=== PATIENT | male | born 1935 | race Caucasian/White ===

== ENCOUNTER 2023-06-15 09:11 | Emergency (ER) | payer MEDICARE, SELFPAY ==
[2023-06-15] VITALS (9 sets, daily range): BP systolic 70–112; BP diastolic 28–57; PULSE 95–112; RESP 18–36; TEMP 36.4–36.9; O2SAT 95–100; BMI 39.4
--- NOTE | ~2023-06-15 | XR_ITS ---
EXAMINATION: XR CHEST CLINICAL INFORMATION: Altered mental status, shortness of breath. COMPARISON: None available. TECHNIQUE: Frontal view of the chest was obtained. FINDINGS: Enlarged cardiomediastinal silhouette with midline sternotomy wires and multiple mediastinal surgical clips. Increased interstitial markings with more focal airspace densities in the left lower lobe. Small left pleural effusion. No pneumothorax. No acute osseous findings. XR/XR chest 1V IMPRESSION: 1. Increased interstitial markings with more focal airspace opacities in the left lower lobe and a small left pleural effusion. Findings are indeterminate and could be related with pulmonary edema and superimposed infectious/inflammatory process in the left lower lobe. 2. Enlarged cardiomediastinal silhouette.
--- NOTE | 2023-06-15 09:17 | ECG_ITS ---
Test Reason : WEAKNESS Blood Pressure : / mmHG Vent. Rate : 107 BPM Atrial Rate : 107 BPM P-R Int : 128 ms QRS Dur : 096 ms QT Int : 348 ms P-R-T Axes : 027 -22 097 degrees QTc Int : 464 ms Sinus tachycardia with Premature supraventricular complexes Possible Anterior infarct , age undetermined Abnormal ECG No previous ECGs available Referred By: Ezequiel Gary Electronically Signed By:EMELYN ARCHULETA
--- NOTE | 2023-06-15 10:09 | ED_ITS ---
HPI - General Adult General Chief complaint: Dyspnea Stated complaint: WEAKNESS SOB DIZZINESS Time Seen by Provider: 06/15/23 09:16 Source: patient and EMS Mode of arrival: EMS Limitations: no limitations History of Present Illness HPI narrative: This is an 88-year-old male history of CHF, obesity, history of CABG presenting to the emergency department via ambulance for shortness of breath and dizziness both of which started this morning. He reports this morning when he got out of bed he felt not only short of breath but he felt like he was going to pass out. He also reports that over the past few days he has been much more weak than usual. He denies associated chest pain. He states he only gets chest pain when he exerts himself and this is new however no chest pain at this time. Patient denies fevers, chills, nausea, vomiting, abdominal pain, headache, vision changes, difficulties with urination or bowel habits. NIHSS-0 Related Data Allergies Allergy/AdvReac Type Severity Reaction Status Date / Time No Known Allergies Allergy Verified 06/15/23 09:27 Review of Systems 2 Review of Systems: Yes all other systems are reviewed and are negative [facility] Past Medical History Attestation statement: The following information was validated with the patient. Source: old records reviewed and nursing notes reviewed Medical History (Updated 06/15/23 @ 13:00 by Rodríguez Fiore MD) CHF (congestive heart failure) Coronary artery disease Social History Social History Smoked in Last 30 Days: No Use of substances other than those prescribed or required for medical reasons: No Advance Directives: No Advance Directives Information Provided: Yes Do you have a plan to hurt others: No Plan Physical Exam ED Vital Signs: Vital Signs - 24 hr 06/15/23 09:16 06/15/23 10:12 06/15/23 11:39 Temperature 97.8 F 97.5 F Pulse Rate 102 H 96 108 H Respiratory Rate 24 H 35 H 18 Blood Pressure 95/57 L 93/45 L 106/38 L Pulse Oximetry 100 95 Oxygen Delivery Method Room Air Room Air Oxygen Flow Rate 06/15/23 11:43 06/15/23 11:58 06/15/23 11:59 Temperature 97.5 F 98.1 F 98.1 F Pulse Rate 110 H 112 H 109 H Respiratory Rate 28 H 36 H 29 H Blood Pressure 106/38 L 96/28 L 87/55 L Pulse Oximetry Oxygen Delivery Method Oxygen Flow Rate 06/15/23 12:44 06/15/23 13:46 Temperature 98.5 F Pulse Rate 95 Respiratory Rate 20 18 Blood Pressure 112/54 L Pulse Oximetry 100 Oxygen Delivery Method Oxymask Oxygen Flow Rate 5 BMI result Body Mass Index 39.4 Hypotension, tachypneic, and tachycardia. Appearance: Alert.? Oriented X3.? No acute distress.? Head: Normocephalic, atraumatic, no step-offs or deformities Eyes: Pupils equal, round and reactive to light.? Neck: Normal inspection.? Neck supple.? CVS: Rapid heart rate around 110 normal rhythm..? Pulses normal.? Respiratory: No respiratory distress.? Breath sounds diminished b/l.? Abdomen: Soft and nontender.? Skin: Skin warm and dry.? Pale skin throughout .? Normal skin turgor.? Extremities: 2+ non pitting edema from the knees down b/l.? No calf ttp. Global weakness Rectal: no noted bleeding on initial exam no hemorrhoids noted. Internal or external. Back: No midline tenderness, no C-spine tenderness, full range of motion, no CVA tenderness bilaterally Neuro: Oriented X 3.? No motor deficit.? No sensory deficit. CN 2-12 intact Course Reevaluation(s) Reevaluation #1: Patient is noted to have a low hemoglobin and hematocrit, normocytic anemia hemoglobin 7.8 hematocrit 24.7, RBCs 2.63, when I discuss these results with patient he said that a few days ago he had a black bowel movement and he has not sure if this could be blood. I did obtain a rectal exam, no damion blood noted on exam however OBS sent for microscopic blood. Chemistry with elevated lactic acid 3.3, due to circulatory shock/ hypovolemic shock, hypotension, tachycardia as welll as suspected acute lower GIB / anemia , unlikely from infection or sepsis. VBG with slightly elevated pH 7.49. I did discontinue the fluids as patient has a history of CHF. Will give blood products instead. No indication this time. Large bowel movement looks dark and gel consistency, feels light headed and short of breath at this time. Time: 10:38 Reevaluation #2: Patient is likely experiencing these sx from lower gi bleed. Less likely PE at this time CTA canceled dry scan will be obtained. Will reach out to [facility] for previous records BUN and cr also likley elevated due to acute blood loss anemia. BNP 335, will infuse blood slowly and trop 13.5 likely type two injury. 2 large jelly bowel movements one bright red now dark black. Protonix push and protonix iv drip ordered. Platelets will be ordered as patient is on plavix. GI consulted agrees w/ my dx and plan. Time: 11:38 Reevaluation #3: Massive transfusion pagged overhead. Patient had 3 bloody bowel movements now dizzy pressure soft Time: 11:58 Additional Reevaluation(s): 1237- has had 3 unit os blood 1 of FFP hanging now [address] Fiore recommends mesenteric angiogram no IR today, patient will require transfer for higher level of care. 1241- [facility] closed to transfers 1254- Call ouut to [facility] expecting call karla 1257- Unit 5 of blood 1 of FFP one of platelets runing pressure now 115/57, patient now not tachypneic or tachycardia. 1257- [facility] closed due to capacity 1300- Will reach out to out of state hospitals patient and aware of this [facility] on the line for potential transfer. 1306- Patient will be going to [facility] Emergency Department Dr. Denny 1334- ALS arrived presure 108/54, HR in the 80 patient mentating well. Patient leaving with 5th unit PRBC hanging, 2nd and 3rd unit of FFP hanging has only recieved 1 unit of plts ( plts have not yet arrived from [facility] at this time) A&O X4. On protonix drip. Medications Administered Generic Name Dose Route Start Last Admin Trade Name Freq PRN Reason Stop Dose Admin Pantoprazole Sodium 80 mg/ 100 mls @ 10 mls/hr 06/15/23 11:30 06/15/23 12:14 Sodium Chloride IV 8 mg/hr .Q10H ROSANA 10 mls/hr Administration 8 MG/HR Discontinued Medications Generic Name Dose Route Start Last Admin Trade Name Freq PRN Reason Stop Dose Admin Sodium Chloride 100 mls @ 100 mls/hr 06/15/23 10:49 06/15/23 11:49 Ns IV 06/15/23 11:48 100 mls/hr ONCE ONE Administration Sodium Chloride 250 mls @ 250 mls/hr 06/15/23 11:09 06/15/23 11:49 Ns IV 06/15/23 12:08 Not Given .Q1H ONE Sodium Chloride 100 mls @ 100 mls/hr 06/15/23 11:31 06/15/23 11:49 Ns IV 06/15/23 12:30 100 mls/hr ONCE ONE Administration Ondansetron HCl 4 mg 06/15/23 11:25 06/15/23 12:16 Ondansetron Hcl 4 Mg/2 Ml Vial IVPUSH 06/15/23 11:26 4 mg ONCE ONE Administration Pantoprazole Sodium 40 mg 06/15/23 11:28 06/15/23 12:08 Pantoprazole Sodium 40 Mg/10 Ml Vial IVPUSH 06/15/23 11:29 40 mg ONCE ONE Administration Medical Decision Making Medical Decision Making [facility] Narrative: 0917 88-year-old male presents with dizziness, shortness of breath and near-syncope this morning. Also reporting increased weakness for the past few days. Physical exam with 2+ nonpitting edema from the knees down bilaterally palpable pulses 2+ dorsalis pedis, anterior tibialis and posterior tibialis pulses equal bilateral. Negative Wing bilaterally. Rapid heart rate normal rhythm heart rate around 110 beats per minute. Breath sounds diminished bilaterally. Pale skin throughout. Vital signs revealing tachycardia, tachypnea and hypotension Concerns for pericardial effusion versus pulmonary embolism versus CHF versus chronic lung disease vs lower gib. Unlikely pneumonia, ACS, dissection. Unlikely metabolic derangements or infection. Will rule out anemia Plan at this time labs, imaging, urine Differential Diagnosis Differential Diagnoses: The differential diagnosis associated with the presentation includes Concerns for pericardial effusion versus pulmonary embolism versus CHF versus chronic lung disease vs lower gib . Unlikely pneumonia, ACS, dissection. Unlikely metabolic derangements or infection. Will rule out anemia Admission/Observation Consideration of admission/observation: Escalation of care including admission/observation considered Likely Consult Healthcare Provider Management of the patient was discussed with: [employer] (GI,Surgery) Lab Data [facility] Lab Attestation statement: I reviewed the patient's lab results. 06/15/23 10:14 06/15/23 11:09 Labs: Lab Results 06/15/23 06/15/23 06/15/23 Range/Units 10:14 10:17 10:58 WBC 9.1 (4.8-10.8) X10*3/uL RBC 2.63 L (4.60-5.80) X10*6/uL Hgb 7.8 L (14.0-18.0) g/dl Hct 24.7 L (42.0-52.0) % MCV 93.9 (80.0-98.0) fL MCH 29.7 (27.0-33.0) pg MCHC 31.6 (31.0-36.0) g/dl RDW 16.7 H (11.0-16.0) % Plt Count 303 (160-400) X10*3/uL MPV 9.7 (9.4-12.4) fL Immature Gran % (Auto) 0.4 (0.0-0.4) % Neut % (Auto) 62.1 (45-73) % Lymph % (Auto) 22.2 (20-40) % [place] % (Auto) 13.6 H (2-11) % Eos % (Auto) 1.3 (0-4) % Baso % (Auto) 0.4 (0-2) % Lymph # (Auto) 2.0 (1.2-4.9) X10*3/uL [place] # (Auto) 1.2 (0.1-1.2) X10*3/uL Eos # (Auto) 0.1 (0.0-0.4) X10*3/uL Baso # (Auto) 0.0 (0.0-0.2) X10*3/uL Abs Immat Gran (auto) 0.04 H (0.00-0.03) X10*3/uL Absolute Neuts (auto) 5.7 (2.0-8.3) x10*3/uL Absolute Nucleated RBC 0.000 (0.0-0.012) X10*3/uL Nucleated RBC % (auto) 0.0 (0.0-0.2) /100WBC PT 12.4 (11.1-13.3) SEC INR 1.0 (0.9-1.1) VBG pH 7.49 H (7.32-7.43) VBG pCO2 37 mmHg VBG pO2 36 mmHg VBG HCO3 28 H (22-26) mmol/L VBG O2 Saturation 59.0 % VBG Base Excess 5.5 mmol/L Sodium (135-145) mmol/L Potassium (3.3-5.1) mmol/L Chloride (96-108) mmol/L Carbon Dioxide (22-29) mmol/L Anion Gap (12-20) BUN (9-16) mg/dL Creatinine (0.5-1.4) mg/dL Estim Creat Clear Calc Estimated GFR Random Glucose (60-115) mg/dL Lactic Acid 3.3 H* (0.5-2.0) mmol/L Calcium (8.4-10.2) mg/dL Magnesium (1.6-2.6) mg/dL Total Bilirubin (0.0-1.0) mg/dL AST (5-37) U/L ALT (0-40) U/L Alkaline Phosphatase (39-117) U/L Troponin I High Sens 13.5 (<3.5-35.0) ng/L B-Natriuretic Peptide 335 H (<100) pg/mL Total Protein (6.5-8.0) g/dL Albumin (3.5-5.0) g/dL Urine Color Urine Appearance Urine pH (5.0-9.0) Ur Specific [place] (1.005-1.025) Urine Protein (Neg-Trace) mg/dL Urine Glucose (UA) (Negative) mg/dL Urine Ketones (Negative) mg/dL Urine Blood (Negative) Urine Nitrite (Negative) Ur Leukocyte Esterase (Negative) Urine RBC (0-2) /HPF Urine WBC (0-5) /HPF Ur Squamous Epith Cells (0-2) /HPF Urine Bacteria (None Seen) Hyaline Casts (0-2) /LPF Stool Occult Blood POSITIVE (NEGATIVE) Blood Type Antibody Screen Crossmatch 06/15/23 06/15/23 06/15/23 Range/Units 11:06 11:09 11:31 WBC (4.8-10.8) X10*3/uL RBC (4.60-5.80) X10*6/uL Hgb (14.0-18.0) g/dl Hct (42.0-52.0) % MCV (80.0-98.0) fL MCH (27.0-33.0) pg MCHC (31.0-36.0) g/dl RDW (11.0-16.0) % Plt Count (160-400) X10*3/uL MPV (9.4-12.4) fL Immature Gran % (Auto) (0.0-0.4) % Neut % (Auto) (45-73) % Lymph % (Auto) (20-40) % [place] % (Auto) (2-11) % Eos % (Auto) (0-4) % Baso % (Auto) (0-2) % Lymph # (Auto) (1.2-4.9) X10*3/uL [place] # (Auto) (0.1-1.2) X10*3/uL Eos # (Auto) (0.0-0.4) X10*3/uL Baso # (Auto) (0.0-0.2) X10*3/uL Abs Immat Gran (auto) (0.00-0.03) X10*3/uL Absolute Neuts (auto) (2.0-8.3) x10*3/uL Absolute Nucleated RBC (0.0-0.012) X10*3/uL Nucleated RBC % (auto) (0.0-0.2) /100WBC PT (11.1-13.3) SEC INR (0.9-1.1) VBG pH (7.32-7.43) VBG pCO2 mmHg VBG pO2 mmHg VBG HCO3 (22-26) mmol/L VBG O2 Saturation % VBG Base Excess mmol/L Sodium 138 (135-145) mmol/L Potassium 4.3 (3.3-5.1) mmol/L Chloride 102 (96-108) mmol/L Carbon Dioxide 23 (22-29) mmol/L Anion Gap 17 (12-20) BUN 38 H (9-16) mg/dL Creatinine 2.12 H (0.5-1.4) mg/dL Estim Creat Clear Calc 31.5 Estimated GFR 30 Random Glucose 108 (60-115) mg/dL Lactic Acid (0.5-2.0) mmol/L Calcium 8.6 (8.4-10.2) mg/dL Magnesium 2.0 (1.6-2.6) mg/dL Total Bilirubin 0.7 (0.0-1.0) mg/dL AST 17 (5-37) U/L ALT 9 (0-40) U/L Alkaline Phosphatase 74 (39-117) U/L Troponin I High Sens (<3.5-35.0) ng/L B-Natriuretic Peptide (<100) pg/mL Total Protein 5.0 L (6.5-8.0) g/dL Albumin 2.7 L (3.5-5.0) g/dL Urine Color Yellow Urine Appearance Clear Urine pH 5.0 (5.0-9.0) Ur Specific [place] 1.020 (1.005-1.025) Urine Protein Negative (Neg-Trace) mg/dL Urine Glucose (UA) >=1000 H (Negative) mg/dL Urine Ketones Trace (Negative) mg/dL Urine Blood Negative (Negative) Urine Nitrite Negative (Negative) Ur Leukocyte Esterase Negative (Negative) Urine RBC 0-2 (0-2) /HPF Urine WBC 0-5 (0-5) /HPF Ur Squamous Epith Cells 3-5 (0-2) /HPF Urine Bacteria Trace (None Seen) Hyaline Casts 11-20 (0-2) /LPF Stool Occult Blood (NEGATIVE) Blood Type O Negative Antibody Screen NEGATIVE Crossmatch See Detail Independent Interpretation I performed an independent interpretation of an: EKG (Vent. Rate : 107 BPM Atrial Rate : 107 BPM P-R Int : 128 ms QRS Dur : 096 ms QT Int : 348 ms P-R-T Axes : 027 -22 097 degrees QTc Int : 464 ms Sinus tachycardia with Premature supraventricular complexes Possible Anterior infarct , age undetermined Abnormal ECG No previ) Radiology Impression Discussion of test interpretation with radiology: I have reviewed the radiologist's reading. Independent Historian Clinical information obtained from an independent historian. History obtained from or confirmed by: Spouse Chronic Conditions Patient?s care impacted by: Other (CHF) Critical Care Time Critical Care Time Critical Care Time: Yes Total Critical Care Time: 120 Attestation: I attest to this time spent taking care of the patient, obtaining history, physical, reviewing labs, imaging, speaking to my attending, specialist or hospitalist. Discharge Plan Discharge Clinical Impression: Hypovolemic shock, Acute blood loss anemia, Acute lower GI bleeding, VISH (acute kidney injury) Patient Disposition: Admitted As Inpatient Print Language: Ecuadorean
[2023-06-15 10:21] LABS: MANUAL DIFF FLAG NO
[2023-06-15 10:22] LABS: Basophils Percent Auto 0.4 % (0-2); Eosinophils Absolute Auto 0.1 X10*3/uL (0.0-0.4); Eosinophils Percent Auto 1.3 % (0-4); Hematocrit 24.7 % (42.0-52.0); Hemoglobin 7.8 g/dl (14.0-18.0); Imm Gran Abs Auto 0.04 X10*3/uL (0.00-0.03); Imm Gran Pct Auto 0.4 % (0.0-0.4); Lymphocytes Percent Auto 22.2 % (20-40); Mean Corpuscular HGB Conc 31.6 g/dl (31.0-36.0); Mean Corpuscular Hemoglobin 29.7 pg (27.0-33.0); Mean Corpuscular Volume 93.9 fL (80.0-98.0); Mean Platelet Volume 9.7 fL (9.4-12.4); Monocytes Absolute Auto 1.2 X10*3/uL (0.1-1.2); Monocytes Percent Auto 13.6 % (2-11); Neutrophils Absolute Auto 5.7 x10*3/uL (2.0-8.3); Neutrophils Percent Auto 62.1 % (45-73); Platelet Count 303 X10*3/uL (160-400); Red Blood Count 2.63 X10*6/uL (4.60-5.80); Red Cell Distribution Width 16.7 % (11.0-16.0); White Blood Count 9.1 X10*3/uL (4.8-10.8)
[2023-06-15 10:22] LABS: Venous Blood Gas Refer to POC result
[2023-06-15 10:23] LABS: VBG Base Excess 5.5 mmol/L; VBG HCO3 28 mmol/L (22-26); VBG pCO2 37 mmHg; VBG pH 7.49 (7.32-7.43); VBG pO2 36 mmHg
[2023-06-15 10:34] LABS: Prothrombin Time 12.4 SEC (11.1-13.3)
[2023-06-15 10:36] LABS: Lactic Acid 3.3 mmol/L (0.5-2.0)
--- NOTE | 2023-06-15 10:39 | PC.NURSE ---
unable to complete orthostatic vitals at this time d/t pts low bp and self report while sitting in stretcher that he is doing to faint
[2023-06-15 10:42] LABS: B Type Natriuretic Peptide 335 pg/mL (<100)
[2023-06-15 10:47] LABS: Troponin-I High Sensitivity 13.5 ng/L (<3.5-35.0)
[2023-06-15 11:06] LABS: OBS Int Ctl Valid YES; OBS1 POSITIVE (NEGATIVE)
[2023-06-15 11:28] LABS: Alanine Aminotransferase 9 U/L (0-40); Albumin Level 2.7 g/dL (3.5-5.0); Alkaline Phosphatase 74 U/L (39-117); Anion Gap 17 (12-20); Aspartate Amino Transferase 17 U/L (5-37); Bilirubin Total 0.7 mg/dL (0.0-1.0); Blood Urea Nitrogen 38 mg/dL (9-16); Calcium 8.6 mg/dL (8.4-10.2); Carbon Dioxide 23 mmol/L (22-29); Chloride 102 mmol/L (96-108); Creatinine Clr Calc Pharmacy 31.5; Estimated Glomerular Filt Rate 30; Glucose Random 108 mg/dL (60-115); Potassium 4.3 mmol/L (3.3-5.1); Sodium 138 mmol/L (135-145)
[2023-06-15 11:40] LABS: Appearance Urine Clear; Color Urine Yellow; Glucose Urine UA >=1000 mg/dL (Negative); Leukocyte Esterase Urine Negative (Negative); Nitrite Urine Negative (Negative); UMIC TRIGGER UACC YES; Urine Blood Negative (Negative); Urine Ketones Trace mg/dL (Negative); Urine Protein Negative (Neg-Trace)
--- NOTE | 2023-06-15 11:47 | PC.NURSE ---
pt placed on bed uriostegui for BM, pt reporting feeling faint and I'm going out . pt had large amount of bloody stool, Sara RAMIREZ made aware, pt pale, diaphoretic. order placed for 2 units stat uncrossed blood to infuse slowly, pt at risk for overload.
--- NOTE | 2023-06-15 11:49 | ECG_ITS ---
Test Reason : abnormal rythem Blood Pressure : / mmHG Vent. Rate : 090 BPM Atrial Rate : 090 BPM P-R Int : 104 ms QRS Dur : 090 ms QT Int : 384 ms P-R-T Axes : 009 -30 036 degrees QTc Int : 469 ms Sinus rhythm with short IL with Premature ventricular complexes Left axis deviation Possible Anterior infarct (cited on or before 15-JUN-2023) cannot exclude inferior infarct Abnormal ECG When compared with ECG of 15-JUN-2023 09:36, No significant change was found Referred By: Ezequiel Gary Electronically Signed By:EMELYN ARCHULETA
[2023-06-15 11:57] LABS: Bacteria Urine Trace (None Seen); RBC Urine 0-2 /HPF (0-2); WBC Urine 0-5 /HPF (0-5)
[2023-06-15] MEDS: Pantoprazole Sodium 40 MG/10 ML VIAL IVPUSH (12:08)
[2023-06-15] MEDS: Pantoprazole Sodium 80 MG in 0.9 % Sodium Chloride 80 ML 10 MG IV (12:14)
[2023-06-15] MEDS: ondansetron HCL 4 MG/2 ML VIAL IVPUSH (12:16)
[2023-06-15 12:19] LABS: Reflex Lactate? Lactic Acid Added
--- NOTE | 2023-06-15 12:56 | P.CONGS_ITS ---
History of Present Illness Consult details Consult date: 06/15/23 Narrative: 88-year-old male with multiple medical problems including CHF, coronary disease, status post CABG in 2019, brought to the ER for weakness and shortness of breath. He says that this started early this morning. He had this sense of being unwell at home. He felt that he was about to ?pass out?. In the ER, he was noted to have multiple episodes of passage of bright and maroon blood per rectum. His blood pressure went down to the 80s and 70s systolic. A massive transfusion protocol was therefore called . He had preserved mentation throughout this episode. The patient and his had apparently just moved to the area [place] almost 2 years ago. 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 The patient is on Plavix self medicates was aspirin. Review of Systems 2 Constitutional: Constitutional: Denies fever(s), Reports lethargy, Reports malaise and Reports weakness Cardiovascular: Cardiovascular: Denies chest pain and Reports dyspnea Respiratory: Respiratory: Denies cough and Reports dyspnea Gastrointestinal: Gastrointestinal: Denies abdominal pain Genitourinary: Genitourinary: Denies difficulty urinating Neurologic: Reports weakness PMFSH Past Medical History Medical History (Updated 06/16/23 @ 00:01 by William Kim) CHF (congestive heart failure) Coronary artery disease Social History Social History Smoked in Last 30 Days: No Use of substances other than those prescribed or required for medical reasons: No Advance Directives: No Advance Directives Information Provided: Yes Do you have a plan to hurt others: No Plan Meds Allergies Allergy/AdvReac Type Severity Reaction Status Date / Time No Known Allergies Allergy Verified 06/15/23 09:27 Active Medications: Current Medications Pantoprazole Sodium 80 mg/ (Sodium Chloride) 100 mls @ 10 mls/hr IV .Q10H ROSANA Last Admin: 06/15/23 12:14 Dose: 8 mg/hr, 10 mls/hr Physical Exam 2 Vital Signs: Vital Signs: Last Vital Signs Temp 98.1 F 06/15/23 11:59 Pulse 109 H 06/15/23 11:59 Resp 20 06/15/23 12:44 BP 87/55 L 06/15/23 11:59 Pulse Ox 95 06/15/23 10:12 O2 Del Method Room Air 06/15/23 10:12 BMI result Body Mass Index 39.4 Const: Other: Appears somewhat short of breath, answers questions well, otherwise comfortable looking Resp: Other: Mildly short of breath Cardio: Rate: tachycardic GI: Palpation (GI): Soft to palpation, not firm and nontender Results Labs 06/15/23 10:14 06/15/23 11:09 Labs: Abnormal lab results 06/15/23 06/15/23 06/15/23 Range/Units 10:14 10:17 11:06 RBC 2.63 L (4.60-5.80) X10*6/uL Hgb 7.8 L (14.0-18.0) g/dl Hct 24.7 L (42.0-52.0) % RDW 16.7 H (11.0-16.0) % [place] % (Auto) 13.6 H (2-11) % Abs Immat Gran (auto) 0.04 H (0.00-0.03) X10*3/uL VBG pH 7.49 H (7.32-7.43) VBG HCO3 28 H (22-26) mmol/L BUN (9-16) mg/dL Creatinine (0.5-1.4) mg/dL Lactic Acid 3.3 H* (0.5-2.0) mmol/L B-Natriuretic Peptide 335 H (<100) pg/mL Total Protein (6.5-8.0) g/dL Albumin (3.5-5.0) g/dL Urine Glucose (UA) (Negative) mg/dL Crossmatch See Detail 06/15/23 06/15/23 Range/Units 11:09 11:31 RBC (4.60-5.80) X10*6/uL Hgb (14.0-18.0) g/dl Hct (42.0-52.0) % RDW (11.0-16.0) % [place] % (Auto) (2-11) % Abs Immat Gran (auto) (0.00-0.03) X10*3/uL VBG pH (7.32-7.43) VBG HCO3 (22-26) mmol/L BUN 38 H (9-16) mg/dL Creatinine 2.12 H (0.5-1.4) mg/dL Lactic Acid (0.5-2.0) mmol/L B-Natriuretic Peptide (<100) pg/mL Total Protein 5.0 L (6.5-8.0) g/dL Albumin 2.7 L (3.5-5.0) g/dL Urine Glucose (UA) >=1000 H (Negative) mg/dL Crossmatch Short CBC 06/15/23 Range/Units 10:14 WBC 9.1 (4.8-10.8) X10*3/uL Hgb 7.8 L (14.0-18.0) g/dl Hct 24.7 L (42.0-52.0) % Plt Count 303 (160-400) X10*3/uL BMP 06/15/23 11:09 Sodium 138 Potassium 4.3 Chloride 102 Carbon Dioxide 23 BUN 38 H Creatinine 2.12 H Calcium 8.6 Liver Function 06/15/23 Range/Units 11:09 Total Bilirubin 0.7 (0.0-1.0) mg/dL AST 17 (5-37) U/L ALT 9 (0-40) U/L Alkaline Phosphatase 74 (39-117) U/L Albumin 2.7 L (3.5-5.0) g/dL Urine 06/15/23 Range/Units 11:31 Urine Color Yellow Urine Appearance Clear Urine pH 5.0 (5.0-9.0) Ur Specific [place] 1.020 (1.005-1.025) Urine Protein Negative (Neg-Trace) mg/dL Urine Glucose (UA) >=1000 H (Negative) mg/dL All other labs normal. Assessment and Plan (1) Acute lower GI bleeding: Status: Inactive The patient had multiple bloody and maroon-colored bowel movements in the ER. He became hypotensive so a massive blood transfusion protocol was called. He was given by RBCs, platelets as well as LFTs. His vital signs have stabilized after transfusion He seems to continued to have this small episodes of bloody stools.. It is important to 1st localize source of his bleeding. At this time, the best scenario would be for him to be able to undergo mesenteric angiogram which may be able to control bleeding as well via embolization selectively. It may be difficult to visualize history of bleeding with endoscopy at this time because of the amount of bleeding that he has been having. I had a long discussion with the patient his about the above. I did explain to them that if his bleeding is localized but not controlled, he may require laparotomy and resection of any involved bowel. The patient and the feel that a surgical candidate because of significant coronary disease. At this time, they expressed their preference to optimize any nonsurgical treatment to control his bleeding. Procedures Date of Service Date of Service: 06/22/23
--- NOTE | 2023-06-15 14:25 | PC.NURSE ---
back charting for pt care MTP called at 1207 following episode of large amount of bloody/maroon stool. 1210: Vitals: HR 111, BP 87/55, O2 93% RA, RR 35 Protonix 40mg IV given per MAR, Zofran given per APR, Protonix 80mg gtt started at 8mg/hr per MAR and infusing. MTP arrival to rm 4 1220. rapid infuser planned to be used. 2 units previously infusing via standard pumps in TAR. - [id number] - moved to rapid infuser at 1228, completed at 1231 - [id number] - moved to rapid infuser at 1231, completed at 1233 RBC unit #[id number] started on the rapid infuser 12:20 via 20G in R. wrist, completed 12:28 VS: HR 109, BP 94/62 RBC unit #[id number] started on rapid infuser 12:34 via 20G in R wrist, completed at 12:46 VS: HR 108, BP 102/54 FFP unit #[id number] started on IV Pump at 12:31 via 18G in LAC completed at 12:59 Platelets #[id number] started at 1239 via 18G in R. F.A, completed at 1301 VS: HR 95, 100% switched to high flow at 50L/30%, 15RR, 110/59 RBC unit #[id number] started at 2.5 ml/min (150ml/hr) via IV infusion pump, sent in transfer to [facility] VS (1255): HR 80, 92% on high flow 50L/30%, 18 RR, 115/57, 98.6 temp VS: (1305): HR 91, 98% on high flow 50L/30%, 20RR, 108/55 FFP unit#[id number] started at 1320 on standard infusion pump, completed at 1344 VS: 89 HR, 15 RR, 100% 50L/30%, 108/48 FFP unit # [id number] started at 1346 via standard infusion pump, sent in transfer to [facility] VS: (1349) HR 97, 100% changed to oxymask at 6L, 18 RR, 98.5 temp, BP 112/54 JENNI TO TRANSPORT PATIENT TO , NO BLOOD TRANSFUSION REACTIONS NOTED DURING PATIENTS STAY AT [facility] JENNI LEFT ROOM 4 AT 1405 WITH FFP INFUSING, RBCs INFUSING AND PROTONIX GTT INFUSING. pt alert and oriented x4, awake, pleasant. pt has 18G in LAC, 18G in R F.A, 20G in HIPOLITO wrists.
== END 2023-06-15 14:05 | disposition admitted as inpatient to this hospital (09) ==
PROVIDERS: Physician Assistant; Emergency Provider Emergency Medicine
DX: R57.1 Hypovolemic shock (principal); D62 Acute posthemorrhagic anemia; K92.2 Gastrointestinal hemorrhage, unspecified; N17.9 Acute kidney failure, unspecified; R06.02 Shortness of breath; R60.0 Localized edema; I50.9 Heart failure, unspecified; I25.10 Atherosclerotic heart disease of native coronary artery without angina pectoris
CPT/HCPCS: 36415; 36430; 71045; 80053; 81001; 82272; 82803; 83605; 83735; 83880; 84484; 85025; 85610; 86850; 86900; 86901; 86920; 86923; 87040; 93005; 96374; 96375; 99285; C9113; J2405; P9016; P9017; P9073

== ENCOUNTER → 2023-06-15 09:17 | Outpatient (BNV) | payer MEDICARE, SELFPAY | PROVIDERS: Emergency Provider Emergency Medicine; Visit Provider Internal Medicine | DX: I49.3 Ventricular premature depolarization (principal) | CPT/HCPCS: 93010 ==

== ENCOUNTER → 2023-06-15 10:22 | Outpatient (BNV) | payer MEDICARE, SELFPAY | PROVIDERS: Emergency Provider Emergency Medicine; Visit Provider Surgery | DX: K92.2 Gastrointestinal hemorrhage, unspecified (principal) | CPT/HCPCS: 99284 ==